=== PATIENT | male | born 1985 | race Hispanic/Latino ===

== ENCOUNTER 2017-02-25 20:22 | Emergency (ER) | payer SELFPAY ==
[~2017-02-25 20:22] MED LIST: Donnatal Elixir 16.2 MG/5 ML UDCUP ONE
--- NOTE | 2017-02-25 21:24 | RAD ---
EXAM: ONE VIEW CHEST 02/25/17 HISTORY: Chest pain. COMPARISON: None. FINDINGS: Normal cardiac silhouette. The lungs and pleural spaces are clear. No pneumothorax. No osseous abnor mality. IMPRESSION: No acute cardiopulmonary process. POS: [facility]
[2017-02-25 21:50] LABS: #Basophils 0.1 thou/uL (0.0-0.2); #Eosinphils 0.1 thou/uL (0.0-0.7); #Monocytes 0.8 thou/uL (0.11-0.59); #Neutrophils 7.6 thou/uL (1.40-6.50); %Eosinophils 0.6 % (0.0-10.0); %Lymphocytes 18.8 % (21.0-51.0); %Monocytes 7.6 % (0.0-10.0); Hemoglobin 15.7 g/dL (14.0-18.0); Mean Corpuscular HGB CONC 35.1 g/dL (32.0-36.0); Mean Corpuscular Hemoglobin 30.9 pg (27.0-31.0); Mean Corpuscular Volume 88.2 fl (80.0-94.0); Mean Platelet Volume 7.4 fL (7.4-10.4); PTT 25.2 SEC (22.9-36.1); Platelet Count 288 thou/uL (130-400); Prothrombin Time 13.3 SEC (12.0-14.7); RBC Distribution Width 11.8 % (11.5-14.5); Red Blood Cell (RBC) Count 5.06 mill/uL (4.70-6.10); White Blood Cell (WBC) Count 10.5 thou/uL (4.8-10.8)
[2017-02-25] MEDS ORDERED: Simethicone Chewable 80 MG TAB ONE (21:51)
[2017-02-25] MEDS ORDERED: Donnatal Elixir 16.2 MG/5 ML UDCUP ONE (21:52)
[2017-02-25] MEDS ORDERED: Aspirin 325 MG TAB ONE (21:52)
[2017-02-25] MEDS ORDERED: Lidocaine Viscous Sol 2% 15 ml UD Cup ONE (21:52)
[2017-02-25] MEDS ORDERED: Aspirin 300 MG Suppository ONE (21:52)
[2017-02-25] MEDS ORDERED: Mag-Al Plus 1200 MG/1200 MG/120 MG/30 ML UDCUP ONE (21:52)
[2017-02-25 22:01] LABS: ALT (SGPT) 98 U/L (8-55); AST (SGOT) 38 U/L (5-34); Albumin 4.3 g/dL (3.5-5.0); Alkaline Phosphatase 79 U/L (40-150); Anion Gap 14 mmol/L (10-20); BUN (Urea Nitrogen) 11 mg/dL (8.9-20.6); Bilirubin, Total 0.5 mg/dL (0.2-1.2); CK (CPK) 75 U/L (30-200); Calc. Creatinine Clearance 0 mL/min (70-130); Calcium 9.4 mg/dL (7.8-10.44); Carbon Dioxide 27 mmol/L (22-29); Chloride 101 mmol/L (98-107); Estimated GFR-MDRD Greater than 90; Globulin 3.1 g/dL (2.4-3.5); Glucose 220 mg/dL (70-105); Potassium 3.8 mmol/L (3.5-5.1); Protein, Total 7.4 g/dL (6.0-8.3); Sodium 138 mmol/L (136-145)
[2017-02-25 22:08] LABS: CKMB 0.6 ng/mL (0-6.6); Troponin I 0.014 ng/mL (< 0.028)
[2017-02-25] MEDS ORDERED: Ondansetron HCl/PF 4 MG/2 ML Vial ONE (23:50)
[2017-02-25] MEDS ORDERED: Metoclopramide HCl 10 MG/2 ML VIAL ONE (23:50)
== END 2017-02-26 00:45 | disposition home or self-care (01) ==
LOC: MADERS 20:22
DX: R10.9 Unspecified abdominal pain (principal); E03.9 Hypothyroidism, unspecified; E11.9 Type 2 diabetes mellitus without complications; Z79.84 Long term (current) use of oral hypoglycemic drugs; Z79.899 Other long term (current) drug therapy
CPT/HCPCS: 36415; 71010; 80053; 82150; 82550; 82553; 83690; 83880; 84484; 85025; 85610; 85730; 93005; 94760; 96374; 96375; J2270; J2405; J2765